=== PATIENT | female | born 1970 | race Caucasian/White ===

== ENCOUNTER 2017-12-31 09:33 | Day surgery (SDC) | payer OTHER ==
[2017-12-31] MEDS ORDERED: LIDOCAINE 4% SOLUTION 50 ML BTL (10:05)
[2017-12-31] MEDS ORDERED: FENTAnyl 50 MCG/ML VIAL (11:24)
[2017-12-31] MEDS ORDERED: MIDAZOLAM 1 MG/ML 2 ML INJ ×2 (11:25)
== END 2017-12-31 17:35 | disposition home or self-care (01) ==
LOC: GIL 09:33
DX: K25.9 Gastric ulcer, unspecified as acute or chronic, without hemorrhage or perforation (principal); K26.9 Duodenal ulcer, unspecified as acute or chronic, without hemorrhage or perforation
CPT/HCPCS: 43239; 88305; 88312